=== PATIENT | female | born 1965 | race Caucasian/White ===

== ENCOUNTER 2020-07-22 14:58 | Outpatient (REF) | payer MEDICAID, SELFPAY | END 2020-07-22 14:59 | disposition home or self-care (01) | LOC: HO.LAB 14:58 | PROVIDERS: Visit Provider Internal Medicine | DX: Z20.822 Contact with and (suspected) exposure to COVID-19 (principal) | CPT/HCPCS: 36415; C9803; U0003 ==

== ENCOUNTER 2021-02-19 09:10 | Outpatient (REF) | payer MEDICAID, SELFPAY | END 2021-02-19 09:11 | disposition home or self-care (01) | LOC: HO.LAB 09:10 | PROVIDERS: PCP Internal Medicine; Visit Provider Internal Medicine | DX: Z20.822 Contact with and (suspected) exposure to COVID-19 (principal) | CPT/HCPCS: C9803; U0003; U0005 ==

== ENCOUNTER 2021-03-20 09:41 | Outpatient (REF) | payer MEDICAID, SELFPAY | END 2021-03-20 09:42 | disposition home or self-care (01) | LOC: HO.LAB 09:41 | PROVIDERS: PCP Internal Medicine; Visit Provider Internal Medicine | DX: Z20.822 Contact with and (suspected) exposure to COVID-19 (principal) | CPT/HCPCS: C9803; U0003; U0005 ==

== ENCOUNTER 2022-04-16 23:11 | Emergency (ER) | payer MEDICAID, SELFPAY ==
[2022-04-16 23:26] VITALS: BP 113/76; PULSE 86; RESP 16; TEMP 36.8; O2SAT 97; BMI 38.6
[2022-04-16 23:49] LABS: MANUAL DIFF FLAG NO
[2022-04-16 23:50] LABS: Basophils Absolute Auto 0.1 X10*3/uL (0.0-0.2); Basophils Percent Auto 0.5 % (0-2); Eosinophils Absolute Auto 0.2 X10*3/uL (0.0-0.4); Eosinophils Percent Auto 1.9 % (0-4); Hematocrit 41.8 % (37.0-47.0); Hemoglobin 13.2 g/dl (12.0-16.0); Imm Gran Abs Auto 0.03 X10*3/uL (0.00-0.03); Imm Gran Pct Auto 0.3 % (0.0-0.4); Lymphocytes Percent Auto 20.5 % (20-40); Mean Corpuscular HGB Conc 31.6 g/dl (31.0-35.0); Mean Corpuscular Hemoglobin 26.6 pg (27.0-33.0); Mean Corpuscular Volume 84.3 fL (80.0-98.0); Mean Platelet Volume 9.3 fL (9.4-12.3); Monocytes Absolute Auto 0.4 X10*3/uL (0.1-1.2); Monocytes Percent Auto 4.6 % (2-11); Neutrophils Percent Auto 72.2 % (45-73); Platelet Count 337 X10*3/uL (160-400); Red Blood Count 4.96 X10*6/uL (4.20-5.50); Red Cell Distribution Width 13.1 % (11.0-16.0); White Blood Count 9.6 X10*3/uL (4.8-10.8)
[2022-04-17 00:11] LABS: Appearance Urine Clear; Color Urine Yellow; Glucose Urine UA Negative (Negative); Leukocyte Esterase Urine Small (1+) (Negative); Nitrite Urine Negative (Negative); PH 5.5 (5.0-9.0); Specific Gravity - Urine 1.025 (1.005-1.025); UMIC TRIGGER UACC YES; Urine Blood Negative (Negative); Urine Ketones Trace mg/dL (Negative); Urine Protein 30 (1+) mg/dL (Neg-Trace)
[2022-04-17 00:14] LABS: Alanine Aminotransferase 10 U/L (0-31); Albumin Level 4.3 g/dL (3.5-5.0); Alkaline Phosphatase 73 U/L (39-117); Anion Gap 15 (12-20); Aspartate Amino Transferase 13 U/L (5-31); Bilirubin Total 0.3 mg/dL (0.0-1.0); Blood Urea Nitrogen 23 mg/dL (9-16); Calcium 9.8 mg/dL (8.4-10.2); Carbon Dioxide 29 mmol/L (22-29); Chloride 103 mmol/L (96-108); Creatinine Clr Calc Pharmacy 84.5; Estimated Glomerular Filt Rate > 60; Glucose Random 137 mg/dL (60-115); Potassium 3.2 mmol/L (3.3-5.1); Sodium 144 mmol/L (135-145); Total Protein 7.5 g/dL (6.5-8.0)
[2022-04-17 00:16] VITALS: BP 137/69; PULSE 76; RESP 18; O2SAT 100
--- NOTE | 2022-04-17 00:19 | ED_ITS ---
HPI - Abdominal Pain General Chief Complaint: Abdominal Pain Stated Complaint: Flank pain/Headache Time Seen by Provider: 04/17/22 00:18 Source: patient Mode of arrival: ambulatory Limitations: no limitations History of Present Illness HPI narrative: Patient complaining of dysuria frequency for last 2-3 days with suprapubic pain radiating to right hip no fever no chills slight nausea no history of kidney stone no hematuria heartbeat been coughing for last few days no fever no chills Related Data Previous Rx's Medication Instructions Recorded levofloxacin 500 mg tablet 500 mg PO DAILY 7 days #7 tabs 04/17/22 oxycodone 5 mg tablet 5 mg PO Q6H PRN Pain (Scale Score 04/17/22 4-6) #20 tabs phenazopyridine 200 mg tablet 200 mg PO TID 2 days #6 tabs 04/17/22 (Pyridium) Allergies Allergy/AdvReac Type Severity Reaction Status Date / Time lisinopril [LISINOPRIL] Allergy Unknown UNKNOWN Verified 04/16/22 23:34 Sulfa (Sulfonamide Allergy Unknown UNKNOWN Verified 04/16/22 23:34 Antibiotics) [SULFA (SULFONAMIDE ANTIBIOTICS)] flu vaccine AdvReac Anaphylaxis Uncoded 04/16/22 23:34 Review of Systems Review of Systems Yes all other systems are reviewed and are negative PMFSH Social History Social History Advance Directives: No Advance Directives Information Provided: Yes Patient : No Physical Exam ED Vital Signs: Vital Signs - 24 hr 04/16/22 23:26 04/17/22 00:16 Temperature 98.2 F Pulse Rate 86 76 Respiratory Rate 16 18 Blood Pressure 113/76 137/69 Pulse Oximetry 97 100 Oxygen Delivery Method Room Air Room Air BMI result Body Mass Index 38.6 Appearance: Alert. Oriented X3. No acute distress. ENT: Pharynx normal. Oral Mucosa moist Neck: Normal inspection. Neck supple. CVS: Normal heart rate and rhythm. Pulses normal. Respiratory: No respiratory distress. Equal air entry bilateral, no wheezing/rales/rhonchi Abdomen: Soft , mild tenderness suprapubic area Bowel sounds are present, no mass palpable, no CVA tenderness Skin: Skin warm and dry. Normal skin color. Normal skin turgor. Extremities: No lower extremity edema. No calf tenderness Neuro: Oriented X 3. No motor deficit. No sensory deficit.No cerebellar signs , cranial nerves II-XII intact MDM - Abdominal Pain MDM Narrative Medical decision making narrative: Patient complicated UTI will discharge patient home on Levaquin also slight low potassium advised to take p.o. potassium containing food at home Lab Data Attestation: I reviewed the patient's lab results. Result diagrams: 04/16/22 23:45 04/16/22 23:45 Labs: Lab Results 04/16/22 04/16/22 04/16/22 Range/Units 23:45 23:45 23:56 WBC 9.6 (4.8-10.8) X10*3/uL RBC 4.96 (4.20-5.50) X10*6/uL Hgb 13.2 (12.0-16.0) g/dl Hct 41.8 (37.0-47.0) % MCV 84.3 (80.0-98.0) fL MCH 26.6 L (27.0-33.0) pg MCHC 31.6 (31.0-35.0) g/dl RDW 13.1 (11.0-16.0) % Plt Count 337 (160-400) X10*3/uL MPV 9.3 L (9.4-12.3) fL Immature Gran % (Auto) 0.3 (0.0-0.4) % Neut % (Auto) 72.2 (45-73) % Lymph % (Auto) 20.5 (20-40) % [place] % (Auto) 4.6 (2-11) % Eos % (Auto) 1.9 (0-4) % Baso % (Auto) 0.5 (0-2) % Lymph # (Auto) 2.0 (1.2-4.9) X10*3/uL [place] # (Auto) 0.4 (0.1-1.2) X10*3/uL Eos # (Auto) 0.2 (0.0-0.4) X10*3/uL Baso # (Auto) 0.1 (0.0-0.2) X10*3/uL Abs Immat Gran (auto) 0.03 (0.00-0.03) X10*3/uL Absolute Neuts (auto) 7.0 (2.0-8.3) x10*3/uL Absolute Nucleated RBC 0.000 (0.0-0.012) X10*3/uL Nucleated RBC % (auto) 0.0 (0.0-0.2) /100WBC Sodium 144 (135-145) mmol/L Potassium 3.2 L (3.3-5.1) mmol/L Chloride 103 (96-108) mmol/L Carbon Dioxide 29 (22-29) mmol/L Anion Gap 15 (12-20) BUN 23 H (9-16) mg/dL Creatinine 0.79 (0.5-1.4) mg/dL Estim Creat Clear Calc 84.5 Estimated GFR > 60 Random Glucose 137 H (60-115) mg/dL Calcium 9.8 (8.4-10.2) mg/dL Total Bilirubin 0.3 (0.0-1.0) mg/dL AST 13 (5-31) U/L ALT 10 (0-31) U/L Alkaline Phosphatase 73 (39-117) U/L Total Protein 7.5 (6.5-8.0) g/dL Albumin 4.3 (3.5-5.0) g/dL Lipase 35 (8-78) U/L Urine Color Yellow Urine Appearance Clear Urine pH 5.5 (5.0-9.0) Ur Specific Girdler 1.025 (1.005-1.025) Urine Protein 30 (1+) H (Neg-Trace) mg/dL Urine Glucose (UA) Negative (Negative) mg/dL Urine Ketones Trace (Negative) mg/dL Urine Blood Negative (Negative) Urine Nitrite Negative (Negative) Ur Leukocyte Esterase Small (1+) H (Negative) Urine RBC 11-20 H (0-2) /HPF Urine WBC 21-50 H (0-5) /HPF Ur Squamous Epith Cells 3-5 (0-2) /HPF Urine Bacteria None Seen (None Seen) Hyaline Casts 0-2 (0-2) /LPF Discharge Plan Discharge Clinical Impression: UTI (urinary tract infection) Patient Disposition: Home, Self-Care Instructions: Urinary Tract Infection in Women (ED) Additional Instructions: Drink plenty of fluids Take antibiotic as prescribed Prescriptions: New levofloxacin 500 mg tablet 500 mg PO DAILY 7 Days Qty: 7 0RF oxycodone 5 mg tablet 5 mg PO Q6H PRN (Reason: Pain (Scale Score 4-6)) Qty: 20 0RF Rx Instructions: Partial Fill upon patient request. phenazopyridine [Pyridium] 200 mg tablet 200 mg PO TID 2 Days Qty: 6 0RF Interventions: ED Discharge Assessment Last Done: 04/17/22 03:15 Discharge Date/Time: 04/17/22 03:16
[2022-04-17 00:27] LABS: Bacteria Urine None Seen (None Seen); Hyaline Casts Urine 0-2 /LPF (0-2); UACC Culture Trigger YES; WBC Urine 21-50 /HPF (0-5)
[2022-04-17 00:37] LABS: Lipase 35 U/L (8-78)
[2022-04-17] MEDS: levoFLOXacin 500 MG TABLET PO (01:51)
[2022-04-17] MEDS: oxyCODONE HCl Immed Release 5 MG TABLET 10 MG PO (01:52)
[2022-04-17] MEDS: Phenazopyridine HCL 200 MG TABLET PO (01:52)
== END 2022-04-17 03:16 | disposition home or self-care (01) ==
PROVIDERS: Emergency Provider Internal Medicine; PCP Internal Medicine
DX: N39.0 Urinary tract infection, site not specified (principal); R10.9 Unspecified abdominal pain; Z87.442 Personal history of urinary calculi
CPT/HCPCS: 36415; 80053; 81001; 83690; 85025; 87086; 99283

== ENCOUNTER 2022-10-01 07:05 | Outpatient (REF) | payer MEDICAID, SELFPAY ==
--- NOTE | ~2022-10-01 | XR_ITS ---
EXAMINATION: XR knee standing BI, XR knee RT 2V CLINICAL INFORMATION: Knee pain COMPARISON: None TECHNIQUE: AP standing view of both knees. Lateral and sunrise views of the right knee. FINDINGS: Right knee: No fracture or subluxation. Compartmental joint spaces are maintained. Small tricompartmental marginal osteophytes. No significant joint effusion. The soft tissues are unremarkable. Left knee: On this single view there is no fracture or malalignment. Compartmental joint spaces are maintained with small medial compartment marginal osteophytes. XR/XR knee standing BI IMPRESSION: Mild tricompartmental degenerative changes of the right knee.
--- NOTE | ~2022-10-01 | XR_ITS ---
EXAMINATION: XR knee standing BI, XR knee RT 2V CLINICAL INFORMATION: Knee pain COMPARISON: None TECHNIQUE: AP standing view of both knees. Lateral and sunrise views of the right knee. FINDINGS: Right knee: No fracture or subluxation. Compartmental joint spaces are maintained. Small tricompartmental marginal osteophytes. No significant joint effusion. The soft tissues are unremarkable. Left knee: On this single view there is no fracture or malalignment. Compartmental joint spaces are maintained with small medial compartment marginal osteophytes. XR/XR knee RT 2V IMPRESSION: Mild tricompartmental degenerative changes of the right knee.
== END 2022-10-01 07:06 ==
LOC: HO.HOSX 07:05
PROVIDERS: Visit Provider Physician Assistant
DX: M17.11 Unilateral primary osteoarthritis, right knee (principal)
CPT/HCPCS: 20610; 73560; 73565; 99202; J1040

== ENCOUNTER → 2022-11-12 09:34 | Outpatient (BNVA) | payer OTHER, SELFPAY | PROVIDERS: PCP Internal Medicine; Visit Provider Physician Assistant | DX: M17.11 Unilateral primary osteoarthritis, right knee (principal) | CPT/HCPCS: 99212 ==

== ENCOUNTER 2023-01-13 12:56 | Outpatient (AMB) | payer MEDICAID, SELFPAY ==
--- NOTE | 2023-01-13 12:59 | MHC.OFFVIS ---
Intake Intake Visit Reasons: OV - Right knee injection Intake Note: Liane is a 57 year old female who presents today for an injection for her right knee pain, last injection 10/01/22. Patient reports that her injection lasted her about a month. She states that she would like to try something else. Patient informed me that the injection that she took made her knee feel numb and having a pulling sensation. Allergies lisinopril [LISINOPRIL] Allergy (Unknown, Verified 11/12/22 09:53) UNKNOWN Sulfa (Sulfonamide Antibiotics) [SULFA (SULFONAMIDE ANTIBIOTICS)] Allergy (Unknown, Verified 11/12/22 09:53) UNKNOWN flu vaccine Adverse Reaction (Uncoded 04/16/22 23:34) Anaphylaxis HPI OV - Right knee injection HPI Details 57-year-old female who presents in the office today for a follow up of right knee pain. The patient had her last cortisone injection on 10/01/2022. She reports the injection only gave her about a month of relief. She states she would like to try something else at this time. She claims the injection made her knee feel numb and she was having a pulling sensation. 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 No ecchymosis, erythema, or joint effusion. No tenderness to palpation to the medial or lateral joint lines. Full knee extension and flexion. Crepitus felt with ROM. Negative Cary's. NVI. Psych Mental Status: mental status grossly normal Assessment & Plan Assessment & Plan (1) Osteoarthritis of right knee: Code(s): M17.11 - Unilateral primary osteoarthritis, right knee Plan Ms. Powell is a 57-year-old female who presents in the office today for a follow up of right knee pain. The patient had her last cortisone injection on 10/01/2022. She reports the injection only gave her about a month of relief. She states she would like to try something else at this time. She claims the injection made her knee feel numb and she was having a pulling sensation. The patient was ordered an MRI on 12/01/2022. However, she reports she was not called to schedule the appointment. Therefore, I have place a new order for an MRI to further evaluate the integrity of the right knee. She states the cortisone injection only gave her one month of relief. She will call after the MRI is obtained. I will review the results and we will set up a telehealth visit. Follow up will be after the MRI is obtained, or sooner if needed. Orders: Orders MR knee RT wo con 01/13/23 M17.11 - Unilateral primary osteoarthritis, right knee Patient Instructions: Scribed for Hien Conn PA-C by Yanni Jones medical lab assistant, on 01/13/2023 at 12:59 pm, EST. Your attestation Coding Level of Care Code Est Pt Level 3 (73590) Diagnoses Osteoarthritis of right knee M17.11
== END 2023-01-13 13:36 | disposition home or self-care (01) ==
PROVIDERS: Visit Provider Physician Assistant
DX: M17.11 Unilateral primary osteoarthritis, right knee (principal)
CPT/HCPCS: 99213

== ENCOUNTER → 2023-01-13 12:56 | Outpatient (BNVA) | payer MEDICAID, SELFPAY | PROVIDERS: Visit Provider Physician Assistant | DX: M17.11 Unilateral primary osteoarthritis, right knee (principal) | CPT/HCPCS: 99212 ==

== ENCOUNTER 2023-02-14 13:03 | Outpatient (REF) | payer MEDICAID, SELFPAY ==
--- NOTE | ~2023-02-14 | MR_ITS ---
EXAMINATION: MR KNEE WITHOUT CONTRAST, RIGHT CLINICAL INFORMATION: Right knee pain. COMPARISON: Radiographs 10/01/2022. TECHNIQUE: MRI of the knee without contrast was performed using routine sequences on a high-field scanner. FINDINGS: MENISCI: Medial Meniscus: Intact Lateral Meniscus: Ill-defined, predominantly horizontal tearing of the anterior horn. LIGAMENTS: Cruciate: Mucoid degeneration of the ACL. Probable ill-defined chronic partial tearing of the distal ligament, with anteriorly displaced fibers and/or synovitis. Collateral: Intact. EXTENSOR MECHANISM: Intact. ARTICULAR CARTILAGE/BONE: Patellofemoral Compartment: Foci of cartilage thinning and surface irregularity of the medial patellar facet, central/medial trochlea. Medial Compartment: Mild cartilage thinning and surface irregularity along the weightbearing aspect with small marginal osteophytes. Lateral Compartment: Cartilage thinning and surface irregularity of the tibia posteriorly. Small marginal osteophytes. JOINT FLUID AND BURSAE: Small joint effusion and Banda's cyst. Mild synovitis. MR/MR knee RT wo con IMPRESSION: 1. Ill-defined horizontal tearing of the anterior horn of the lateral meniscus. 2. Mucoid degeneration of the ACL with probable chronic partial tearing of the distal ligament. 3. Mild tricompartmental osteoarthritis with a small joint effusion and Banda's cyst.
== END 2023-02-14 13:04 | disposition home or self-care (01) ==
LOC: HO.MRI 13:03
PROVIDERS: PCP Internal Medicine; Visit Provider Physician Assistant
DX: M17.11 Unilateral primary osteoarthritis, right knee (principal)
CPT/HCPCS: 73721

== ENCOUNTER 2023-04-07 10:05 | Outpatient (AMB) | payer MEDICAID, SELFPAY ==
--- NOTE | 2023-04-07 10:16 | MHC.OFFVIS ---
Intake Intake Visit Reasons: ov- Knee RT MRI review Intake Note: Liane is a 57 year old female who presents today for a MRI review of her right knee. Patient reports having a pulling sensation in her right knee when she is walking. Allergies lisinopril [LISINOPRIL] Allergy (Unknown, Verified 04/07/23 10:17) UNKNOWN Sulfa (Sulfonamide Antibiotics) [SULFA (SULFONAMIDE ANTIBIOTICS)] Allergy (Unknown, Verified 04/07/23 10:17) UNKNOWN flu vaccine Adverse Reaction (Uncoded 04/16/22 23:34) Anaphylaxis HPI ov- Knee RT MRI review HPI Details 57-year-old female who presents in the office today for a follow up of right knee pain and review of her MRI. The patient reports a pulling sensation in the right knee when she is ambulating. She also states she has increased pain with over use of the knee due to walking for long periods of time. She states her mother is currently in the ICU. 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 No ecchymosis, erythema, or joint effusion. No tenderness to palpation to the medial or lateral joint lines. Full knee extension and flexion. Crepitus felt with ROM. Negative Cary's. NVI. Psych Mental Status: mental status grossly normal Assessment & Plan Assessment & Plan (1) Osteoarthritis of right knee: Code(s): M17.11 - Unilateral primary osteoarthritis, right knee Qualifiers: Osteoarthritis type: unspecified Qualified Code(s): M17.11 - Unilateral primary osteoarthritis, right knee (2) Right knee meniscal tear: Code(s): S83.206A - Unspecified tear of unspecified meniscus, current injury, right knee, initial encounter Qualifiers: Encounter type: subsequent encounter Meniscus of knee: unspecified Meniscus tear of knee type: unspecified type Tear current or old: current Qualified Code(s): S83.206D - Unspecified tear of unspecified meniscus, current injury, right knee, subsequent encounter Plan Ms. Powell is a 57-year-old female who presents in the office today for a follow up of right knee pain and review of her MRI. The patient reports a pulling sensation in the right knee when she is ambulating. She also states she has increased pain with over use of the knee due to walking for long periods of time. She states her mother is currently in the ICU. I discussed a right knee arthroscopy with the patient while in the office today. She would like to move forward with the procedure, however, due to her mother being in the ICU she would like to hold off at this time. I have created a booking sheet and given her information to the surgical services director. She was given my card to call the office when she is ready to move forward. Follow up will be when the patient calls to move forward with a right knee arthroscopy, or sooner if needed. MRI of the right knee, obtained on 02/14/2023, revealed: 1. Ill-defined horizontal tearing of the anterior horn of the lateral meniscus. 2. Mucoid degeneration of the ACL with probable chronic partial tearing of the distal ligament. 3. Mild tricompartmental osteoarthritis with a small joint effusion and Banda's cyst. Patient Instructions: Scribed for Hien Conn PA-C by stephane Rizzo scribe, on 04/07/2023 at 10:11 am, EST. Coding Level of Care Code Est Pt Level 4 (65811) Diagnoses Osteoarthritis of right knee, unspecified osteoarthritis type M17.11 Osteoarthritis type: unspecified Tear of meniscus of right knee as current injury, unspecified meniscus, unspecified tear type, subsequent encounter S83.206D Encounter type: subsequent encounter Meniscus of knee: unspecified Meniscus tear of knee type: unspecified type Tear current or old: current
== END 2023-04-07 10:35 | disposition home or self-care (01) ==
PROVIDERS: PCP Internal Medicine; Visit Provider Physician Assistant
DX: M17.11 Unilateral primary osteoarthritis, right knee (principal); S83.281A Other tear of lateral meniscus, current injury, right knee, initial encounter
CPT/HCPCS: 99214

== ENCOUNTER → 2023-04-07 10:05 | Outpatient (BNVA) | payer MEDICAID, SELFPAY | PROVIDERS: PCP Internal Medicine; Visit Provider Physician Assistant | DX: S83.206D Unspecified tear of unspecified meniscus, current injury, right knee, subsequent encounter (principal); M17.11 Unilateral primary osteoarthritis, right knee | CPT/HCPCS: 99212 ==